=== PATIENT | male | born 1945 | race Caucasian/White ===

== ENCOUNTER 2021-03-26 14:49 | Outpatient (REF) | payer MEDICARE, SELFPAY ==
[2021-03-26 19:10] LABS: Appearance Urine CLEAR; Color Urine YELLOW; Glucose Urine UA >=1000 MG/DL (NEG); Leukocyte Esterase Urine NEG (NEG); Nitrite Urine NEG (NEG); PH 5.5 (5.0-8.0); Specific Gravity - Urine 1.025 (1.005-1.025); Urine Blood NEG (NEG); Urine Ketones NEG (NEG); Urine Protein NEG (NEG-TRACE)
[2021-03-26 19:16] LABS: RBC Urine 0-2 /HPF (0); Squamous Epithelial Cell Urine 1+ /LPF; WBC Urine 0-2 /HPF (0-4)
[2021-03-26 19:21] LABS: Creatinine Urine 128.66 mg/dL; Microalbum/Creatinine Ratio Ur 27.9 ug/mg cr
[2021-03-26 20:46] LABS: Alanine Aminotransferase 18 U/L (0-40); Albumin Level 3.7 g/dL (3.5-5.0); Anion Gap 14 (12-20); Aspartate Amino Transferase 13 U/L (5-37); Bilirubin Total 0.8 mg/dL (0.0-1.0); Blood Urea Nitrogen 22 mg/dL (9-16); Calcium 8.1 mg/dL (8.4-10.2); Carbon Dioxide 23 mmol/L (22-29); Chloride 102 mmol/L (96-108); Estimated Glomerular Filt Rate 48; Glucose Random 395 mg/dL (60-115); Potassium 4.4 mmol/L (3.3-5.1); Sodium 135 mmol/L (135-145); Total Protein 6.1 g/dL (6.5-8.0)
[2021-03-27 00:14] LABS: Cholesterol 175 mg/dL; HDL Cholesterol 32 mg/dL; LDL Cholesterol Calculated 90 mg/dl; Triglycerides 266 mg/dL
[2021-03-27 00:17] LABS: Alkaline Phosphatase 99 U/L (39-117)
[2021-03-27 07:28] LABS: Estimated Average Glucose 278 mg/dL; Hemoglobin A1c % 11.3 %
== END 2021-03-26 14:50 | disposition home or self-care (01) ==
LOC: HO.MANLDS 14:49
PROVIDERS: PCP Physician Assistant; Visit Provider Physician Assistant
DX: E11.9 Type 2 diabetes mellitus without complications (principal); R30.0 Dysuria
CPT/HCPCS: 36415; 80053; 80061; 81001; 81003; 82043; 83036

== ENCOUNTER 2024-12-21 13:56 | Outpatient (REF) | payer MEDICARE, SELFPAY ==
--- OUTSIDE RECORDS SUMMARY | 2024-09-13 10:30 | XMS_ITS ---
Author Name [facility] [facility] [place] Address [address], [place] [address] Care Team Providers Care Application Support Name Role Phone CEM MCINTYRE Primary Care Provider Unavailabl e Insurance Providers: All historical and current Section Date Range: From patient's date of to the date document was created. This section includes the names of all active insurance providers for the patient. Insurance Provider Type of Coverage Plan Name Start of Policy Coverage End of Policy Coverage Group Number Member ID Insurance Provider's Telephone Number Policy Bonner's Name Patient's Relationship to Policy Bonner AARP MED SUPP MEDICARE SUPPLEMEN TEREZA PLANM Y May 25, 2011 PLAN [id number] JANAE CARDONA PATIENT AARP MED SUPP MEDICARE SUPPLEMEN TEREZA PLANM Y May 25, 2011 PLAN [id number] DULCE JANAE PATIENT [facility] (WNR) MEDICARE ADVANTAGE [facility] (WNR) May 25, 2021 [id number] JANAE CARDONA PATIENT Selected Encounter This section includes the information on record at CT for the Encounter. Date/Time Encounter Type Encounter Description Reason Provider Source Sep 13, 2024 02:30 PM OFFICE O/P EST LOW 20 MIN PRIMARY CARE/MEDICINE ICD-10-CM Z93.0 Tracheostomy status CEM MCINTYRE Bryce Encounter Template Text not used by CT Assessments - Encounter Diagnoses This section includes the primary and secondary diagnoses documented for the Encounter. Date/Time Primary/Secondary Diagnosis Diagnosis Name Provider Source Sep 13, 2024 02:59 PM PRIMARY Tracheostomy status CEM MCINTYRE [facility] Plan of Treatment: Future Appointments (+ 6 months) and Future Tests (+/- 45 days) The Plan of Treatment section includes future care activities for the patient from all CT treatmentfacilities. This section includes future appointments and future orders which are active, pending or scheduled. Future Appointments This section includes appointments that were scheduled to occur 6 months from the date of the Encounter, up to a maximum of 20 appointments. The data comes from all CT treatment facilities. Appointment Date/Time Appointment Type Appointme nt Facility Name Oct 28, 2024 01:00 PM AMBULATORY - MEDICINE CT [facility] Nov 08, 2024 03:00 PM AMBULATORY [facility]IN [facility] Nov 14, 2024 04:00 PM AMBULATORY - [facility]AB MEDICIN E [facility] Nov 22, 2024 03:00 PM AMBULATORY - REHAB MEDICIN E [facility] Nov 24, 2024 08:00 AM AMBULATORY - REHAB MEDICIN E [facility] Nov 29, 2024 03:00 PM AMBULATORY - REHAB MEDICIN E [facility] Dec 06, 2024 09:30 AM AMBULATORY - REHAB MEDICIN E [facility] Dec 06, 2024 03:00 PM AMBULATORY - REHAB MEDICIN E [facility] Dec 13, 2024 03:00 PM AMBULATORY - REHAB MEDICIN E [facility] Dec 20, 2024 03:00 PM AMBULATORY - REHAB MEDICIN E [facility] Dec 27, 2024 03:00 PM AMBULATORY - REHAB MEDICIN E [facility] Jan 03, 2025 10:00 AM AMBULATORY - REHAB MEDICIN E [facility] Jan 03, 2025 01:00 PM [facility] Vital Signs: All taken on the encounter date This section contains inpatient and outpatient Vital Signs collected on the date of the Encounter. Date/Time Temperature Pulse Blood Pressure Respiratory Rate SP02 Pain Height Weight Body Mass Index Source Sep 13, 2024 02:30 PM 99.1 70 126/72 18 94 0 166 [facility] Social History: Smoking Status (Most current) and Tobacco Use (All prior to encounter date) This section includes the most current, and the historical, smoking and tobacco- related health factors from the CT facility where the Encounter took place. Current Smoking Status This section includes the most current smoking, or tobacco-related health factor, from the CT facility where the Encounter took place. Date/Time Current Smoking Status Comment Facil ity Oct 28, 2023 01:00 PM VA-TOBACCO FORMER USER [facility] Tobacco Use History This section includes a history of the smoking, or tobacco-related health factors, that were collected on or before the date of the Encounter. The data comes from the CT facility where the Encounter took place. Date/Time Smoking Status/Tobacco Use Comment F acility Oct 28, 2023 01:[address]-TOBACCO QUIT 1 TO < 5 YRS [facility] Oct 28, 2022 02:00 PM VA-TOBACCO FORMER USER [facility] Oct 28, 2022 02:[address]-TOBACCO QUIT 15 YRS OR MORE [facility] Advance Directives: All historical and current Section Date Range: From patient's date of to the date document was created. This section includes ALL of a patient's completed or amended CT Advance and Rescinded Directives. The entries below indicate that a directive exists for the patient, but an actual copy is not included with this document. The data comes from all CT facilities. Date Advance Directives Provider Source Jul 27, 2022 ADVANCE DIRECTIVE ANDI GARCIA [facility] Encounter Notes: All associated encounter notes This section contains the clinical notes associated to the Encounter. Date/Time Encounter Note(s) Provider Source Sep 13, 2024 02:53 PM PHYSICIAN NOTE: LOCAL TITLE: MD NOTE STANDARD TITLE: PHYSICIAN NOTE DATE OF NOTE: SEP 13, 2024@14:53 ENTRY DATE: SEP 13, 2024@14:53:08 AUTHOR: CEM MCINTYRE EXP COSIGNER: URGENCY: STATUS: COMPLETED Patient Name: JANAE CARDONA VITALS: Patient temperature: 99.1 F [37.3 C] (09/13/2024 14:30) Blood pressure: 126/72 (09/13/2024 14:30) Patient height: 70 in [177.8 cm] (10/28/2023 12:52) Patient weight: 166 lb [75.30 kg] (09/13/2024 14:30) Patient BMI: BMI: 23.9 Patient pulse: 70 (09/13/2024 14:30) Patient respiration: 18 (09/13/2024 14:30) Patient Pulse Oximetry: 94% (09/13/2024 14:30) Pain Ratin (09/13/2024 14:30) Active VA Medications: Active Outpatient Medications (including Supplies): Active Non-VA Medications Status ====== 1) Non-VA ASPIRIN 81MG EC TAB 81MG BY MOUTH ONCE DAILY ACTIVE 2) Non-VA LANSOPRAZOLE 30MG EC CAP 30MG BY MOUTH ONCE DAILY ACTIVE Indication: FOR GERD Remote Medications: No Active 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 Borck History of present illness Presently at [facility]. Might be transferring to a different SNF. Needs medical evaluation to establish needs prior to transfer. Feels well today with no complaints. 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 Eats well with no feeding tube. Review of systems No chest pain or dyspnea No abdominal pain No trouble urinating No fever or chills No cough Physical examination Well-developed well-nourished male in no acute distress Coronary no murmur Lungs clear Abdomen positive bowel sounds soft nontender no masses Pharynx no erythema mucous membranes moist Tracheostomy site and tube without erythema Assessment and plan: 1. Tracheostomy care: Patient requires assistance with tracheostomy care, this is done by nurse or respiratory therapist. He has no other wound care, dementia or wandering issues Plan: Continue above personal support worker is assisting with long-term care Follow-up 1 year Patient declined all vaccines today Seen today with kalee Leiva Medication Reconciliation: Outpatient: Has the patient been taking medications as documented in the EMLR? YES: The patient has been taking medications as documented in the EMLR. Essential Medication List for Review used to complete this medication reconciliation. INCLUDED IN THIS LIST: Alphabetical list of active outpatient prescriptions dispensed from this CT (local) and dispensed from another CT or [facility] facility (remote) as well as inpatient orders (local, pending and active), local clinic medications, locally documented non-VA medications, and local prescriptions that have or been discontinued in the past 90 days. - All changes in medications, including all non-VA/Herbal/OTC medications were entered into CPRS. - If there were any medications the patient should no longer take, they were discontinued. - The patient/caregiver was instructed to update this list, discard old lists, and take this list to the next appointment, whether with a VA or non-VA provider. Pneumococcal Conjugate Vaccine (PCV15/PCV20/PCV21): Refuses PCV vaccine Immunization: PNEUMOCOCCAL CONJUGATE, UNSPECIFIED FORMULATION Refusal Reason: PATIENT DECISION Patient refuses all immunization(s) in the PneumoPCV group Date Documented: 09/13/24 14:58 /german/ Cem Mcintyre MD Staff Physician Signed: 09/13/2024 14:[address] [facility] Sep 13, 2024 02:31 PM PREVENTIVE MEDICINE NURSING NOTE: LOCAL TITLE: CLINICAL REMINDERS/NURSING STANDARD TITLE: PREVENTIVE MEDICINE NURSING NOTE DATE OF NOTE: SEP 13, 2024@14:31 ENTRY DATE: SEP 13, 2024@14:31:23 AUTHOR: FAUSTINA CLARKEIGNER: URGENCY: STATUS: COMPLETED Falls & Incontinence Screen: Falls Screen: 4. No falls within the past year. Incontinence Screen No incontinence. Influenza Immunization: The patient has received the seasonal influenza vaccine for the current season at another location. Documented: INFLUENZA, UNSPECIFIED FORMULATION Historical Date Administered: Apr 15, 2024 Series: Booster Outside Location: Outside Healthcare Provider Information Source: FROM OTHER PROVIDER /es/ FAUSTINA CLARKE LPN Signed: 09/13/2024 14:33 [facility]KE [facility]
--- OUTSIDE RECORDS SUMMARY | 2024-12-21 14:39 | XMS_ITS | Encounter Summary ---
Author Organization Merged With [facility] Address [address] [facility] [address] [place] [phone] Phone Care Team Providers Care Test Clerk Name Role Phone Fermin Brock Primary Care Provider [phone] Encounter Details Date Type Department Care Team (Late st Contact Info) Description 12/31/2023 Transcribe Orders [facility] Specimen Processing [address] [place] [address] Krzysztof Nix MD [address] [facility], [address], [address] [place] [address] [email or web address] Upper respiratory tract infection, unspecified type (Primary Dx) Social History Tobacco Use Types Packs/Day Years Used Date Smoking Tobacco: Former Cigarettes Passive Smoke Exposure: Past Smokeless Tobacco: Never Alcohol Use Standard Drinks/Week Comments Yes 0 (1 standard drink = 0.6 oz pur e alcohol) 2 Rum and cokes per month Education Answer Date Recorded Are you interested in more education? Not on rick e 09/19/2022 Are you concerned about learning? Not on file 09/19/2022 No 09/19/2022 No 09/19/2022 Digital Access Answer Date Recorded No 10/15/2022 No 10/15/2022 Reliable internet access at home? Not on file 10/15/2022 Device with a working camera? Not on file Intimate Partner Violence Answer Date R ecorded Are you denied basic needs s uch as food, clothing, or medical care? No 01/23/2023 In the past 12 months have y ou been in a relationship with a person who hurts, threatens, or tries to control you? No 01/23/2023 Are you denied basic needs s uch as food, clothing, or medical care? No 01/23/2023 In the past 12 months have y ou been in a relationship with a person who hurts, threatens, or tries to control you? No 01/23/2023 Sex and Gender Information Value Date Recorded Sex Assigned at Male 01/23/2023 12:35 PM EDT Legal Sex Male 10:10 PM EDT Gender Identity Male 01/23/2023 12:35 PM EDT Sexual Orientation Straight 01/23/2023 12 :35 PM EDT documented as of this encounter Plan of Treatment Not on file documented as of this encounter Procedures Procedure Name Priority Date/Time Associated Diagnosis Comments COMPREHENSIVE METABOLIC PANEL Routine 12/31/2023 5:50 AM EDT Upper respiratory tract infection, unspecified type CBC AND DIFFERENTIAL Routine 12/31/2023 5:50 AM EDT Upper respiratory tract infection, unspecified type documented in this encounter Results * (ABNORMAL) CBC and differential (12/31/2023 5:50 AM EDT) WBC 8.09 4.00 - 11.00 K/uL [facility] RBC 3.75(L) 3.90 - 5.69 M/uL [facility] HGB 11.5(L) 12.4 - 17.3 g/dL [facility] HCT 36.3(L) 37.0 - 51.0 % [facility] PLT 193 140 - 430 K/uL [facility] MCV 96.8 78.0 - 97.0 fL [facility] MCH 30.7 25.0 - 33.0 pg [facility] MCHC 31.7(L) 32.0 - 36.0 g/dL [facility] RDW 13.0 11.0 - 15.0 % [facility] MPV 9.8 8.4 - 12.8 fl [facility] DIFF METHOD Auto [facility] NEUTS 78.3(H) 43.0 - 75.0 % [facility] LYMPHS 5.1(L) 18.2 - 47.4 % [facility] MONOS 13.3(H) 4.00 - 11.00 % [facility] EOS 2.1 0.0 - 8.0 % [facility] BASOS 0.7 0.0 - 2.0 % [facility] Granulocytes, immature (%) 0.5 0.0 - 0.9 % [facility] ABSOLUTE NEUTS 6.33 1.80 - 7.70 K/uL [facility] ABSOLUTE LYMPHS 0.41(L) 1.00 - 3.10 K/uL [facility] ABSOLUTE MONOS 1.08(H) 0.20 - 0.80 K/uL [facility] ABSOLUTE EOS 0.17 0.00 - 0.80 K/uL [facility] ABSOLUTE BASOS 0.06 0.00 - 0.09 K/uL [facility] Granulocytes, immature 0.04 0.00 - 0.05 K/uL [facility] Blood 12/31/2023 5:50 AM EDT 12/31/2023 8:11 AM EDT us Krzysztof Nix MD LAB BLOOD ORDERABLES Final Resul t [facility] [address] [place] [address] * (ABNORMAL) Comprehensive metabolic panel (12/31/2023 5:50 AM EDT) SODIUM 140 133 - 146 mmol/L [facility] POTASSIUM 4.8 3.3 - 5.1 mmol/L [facility] CHLORIDE 103 96 - 108 mmol/L [facility] CO2 26 21 - 35 mmol/L [facility] BUN 26(H) 6 - 19 mg/dL [facility] CREATININE 1.30 0.5 - 1.5 mg/dL [facility] GLUCOSE 100(H) 70 - 99 mg/dL [facility] ALBUMIN 3.7(L) 3.9 - 4.8 g/dL [facility] TOTAL PROTEIN 6.1(L) 6.5 - 8.0 g/dL [facility] CALCIUM 8.6 8.4 - 10.3 mg/dL [facility] ALKALINE PHOSPHATASE 99 39 - 117 U/L [facility] TOTAL BILIRUBIN 0.4 0.0 - 1.2 mg/dL [facility] AST 16 0 - 37 U/L [facility] ALT 14 0 - 40 U/L [facility] GLOBULIN 2.4 1 - 4.8 g/dL [facility] EGFR 56(L) >59 mL/min/1.7 3m2 [facility] Comment:Estimated glomerular filtration rate calculated using the CKD-EPI refit equation. 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 It is not the complete legal health record.[facility]
[2024-12-21 18:01] LABS: MANUAL DIFF FLAG NO
[2024-12-21 18:09] LABS: Hematocrit 36.8 % (42.0-52.0); Hemoglobin 11.8 g/dl (14.0-18.0); Imm Gran Abs Auto 0.03 X10*3/uL (0.00-0.03); Imm Gran Pct Auto 0.5 % (0.0-0.4); Lymphocytes Absolute Auto 0.4 X10*3/uL (1.2-4.9); Mean Corpuscular HGB Conc 32.1 g/dl (31.0-36.0); Mean Corpuscular Hemoglobin 30.3 pg (27.0-33.0); Mean Corpuscular Volume 94.4 fL (80.0-98.0); NRBC Abs Auto 0.020 X10*3/uL (0.0-0.012); NRBC Pct Auto 0.3 /100WBC (0.0-0.2); Platelet Count 170 X10*3/uL (160-400); Red Blood Count 3.90 X10*6/uL (4.60-5.80); White Blood Count 5.8 X10*3/uL (4.8-10.8)
[2024-12-21 18:25] LABS: Alanine Aminotransferase 17 U/L (0-40); Albumin Level 4.1 g/dL (3.5-5.0); Alkaline Phosphatase 82 U/L (39-117); Amylase 24 U/L (28-100); Anion Gap 14 (12-20); Aspartate Amino Transferase 21 U/L (5-37); Blood Urea Nitrogen 24 mg/dL (9-16); Calcium 9.1 mg/dL (8.4-10.2); Carbon Dioxide 23 mmol/L (22-29); Chloride 112 mmol/L (96-108); Estimated Glomerular Filt Rate 55; Gamma Glutamyl Transpeptidase 20 U/L (11-51); Iron 68 mcg/dL (45-160); Lipase 8 U/L (8-78); Percent Iron Saturation 29 % (15-50); Potassium 4.9 mmol/L (3.3-5.1); Sodium 144 mmol/L (135-145); Total Iron Binding Capacity 231 mcg/dL (228-428); Total Protein 6.6 g/dL (6.5-8.0); Unsaturated Iron Binding 163 ug/dL
== END 2024-12-21 13:57 | disposition home or self-care (01) ==
LOC: HO.MANLDS 13:56
PROVIDERS: Visit Provider Physician Assistant
DX: R19.7 Diarrhea, unspecified (principal)
CPT/HCPCS: 36415; 80053; 82150; 82977; 83540; 83690; 85025; 85652; 86140